=== PATIENT | female | born 1990 | race American Indian/Alaskan Native ===

== ENCOUNTER 2020-05-01 10:51 | Emergency (ER) | payer MEDICARE ==
[2020-05-01 10:57] VITALS: BP 115/71
[2020-05-01] MEDS ORDERED: DIPHtheria,PERTUSSIS(ACELL),TETANUS VACCINE/PF 0.5 ML VIAL IM ONE (11:17)
--- NOTE | 2020-05-01 11:19 | Emergency Department Report ---
ED Laceration HPI - HPI Chief Complaint: Wound/Laceration Stated Complaint: RT HAND INJURY Time Seen by Provider: 05/01/20 11:15 Occurred When: Yesterday Location: Upper Extremity (Right hand palm laceration) Severity: moderate Tetanus Status: Not up to Date Laceration Symptoms: Yes Pain Other History: 29-year-old -[place] female reports to the emergency room for right palm hand laceration that happened about 6 or 7 last night. Patient presents with intermittent bleeding. ED Review of Systems ROS: Stated complaint: RT HAND INJURY Other details as noted in HPI Comment: All other systems reviewed and negative ED Past Medical Hx - Past Medical History Previous Medical History?: No - Surgical History Past Surgical History?: No - Social History Smoking Status: Current Every Day Smoker - Medications Home Medications: Home Medications Medication Instructions Recorded Confirmed Last Taken Type Clindamycin [Clindamycin CAP] 300 mg PO Q8H 7 Days #21 cap 05/01/20 Unknown Rx Laceration Physical Exam - Exam General: Vital signs noted. No distress. Alert and acting appropriately. Wound Length (cm): 7 Laceration Location: Upper Extremity Laceration Exam: Yes Normal Distal CMS, No Foreign Body, No Exposed Tendon, Vessel, or Nerve, No Tendon Injury ED Course Vital Signs 05/01/20 10:55 Temperature 97.5 F L Pulse Rate 61 Respiratory 18 Rate Blood Pressure 115/71 O2 Sat by Pulse 100 Oximetry - Laceration /Wound Repair Right Hand Wound Location: upper extremity (Right hand palmar) Wound's Depth, Shape: into muscle Wound Explored: no foreign body removed Irrigated w/ Saline (ccs): 250 Betadine Prep?: Yes Anesthesia: 1% Lidocaine Volume Anesthetic (ccs): 3 Wound Debrided: minimal Suture Size/Type: 3:0, proline Number of Sutures: 3 (Loose sutures placed) Sterile Dressing Applied?: Yes ED Medical Decision Making - Medical Decision Making 29-year-old -M[place]ese female reports to the emergency room for right palm hand laceration that happened about 6 or 7 last night. Patient presents with intermittent bleeding. Wound care by paramedics tetanus. Patient be placed on Keflex instructed to take Tylenol or ibuprofen as needed for pain management. Keep dressings clean and dry change often. Follow-up with your primary care provider. Critical care attestation.: If time is entered above; I have spent that time in minutes in the direct care of this critically ill patient, excluding procedure time. ED Disposition Clinical Impression: Laceration of right hand Disposition: [id number] TO HOME OR SELFCARE Is pt being admited?: No Does the pt Need Aspirin: No Condition: Stable Instructions: Laceration Care, Adult, [id number] Additional Instructions: Please keep wound clean and dry return in 7 to 10 days to have sutures removed. Complete the antibiotics as prescribed. Pain medication as needed. Prescriptions: Clindamycin [Clindamycin CAP] 300 mg PO Q8H 7 Days #21 cap Referrals: [facility] [Provider Group] - 3-5 Days Forms: Work/School Release Form(ED)
== END 2020-05-01 12:56 | disposition home or self-care (01) ==
LOC: ED 10:51
DX: S61.411A Laceration without foreign body of right hand, initial encounter (principal); W45.8XXA Other foreign body or object entering through skin, initial encounter; Y93.89 Activity, other specified; Y92.89 Other specified places as the place of occurrence of the external cause; Y99.8 Other external cause status
CPT/HCPCS: 90471; 90715; 99282